=== PATIENT | female | born 2000 | race Caucasian/White ===

== ENCOUNTER 2023-06-02 01:11 | Emergency (ER) | payer MEDICAID ==
[~2023-06-02] VITALS: Ht 157.5 cm; Wt 95.3 kg
[2023-06-02 01:14] VITALS: BP 137/86; PULSE 120; RESP 16; TEMP 97.4; O2SAT 97
[2023-06-02] MEDS ORDERED: levETIRAcetam 500 MG TAB PO ONE (02:25)
[2023-06-02 03:30] LABS: BASOPHILS % (AUTO) 0.3 % (0.0-2.0); EOSINOPHILS # (AUTO) 0.2 K/uL (0-0.4); EOSINOPHILS % (AUTO) 1.3 % (0.0-4.0); HEMATOCRIT 37.8 % (36-48); HEMOGLOBIN 12.2 g/dL (12.0-16.0); LYMPHOCYTES % (AUTO) 15.8 % (20.5-51.1); MEAN CORPUSCULAR HEMOGLOBIN 27 pg (27-31); MEAN CORPUSCULAR HGB CONC 32 g/dL (33-37); MEAN CORPUSCULAR VOLUME 83.4 fL (80-94); MONOCYTES # (AUTO) 0.6 K/uL (0.8-1.0); MONOCYTES % (AUTO) 4.7 % (1.7-9.3); NEUTROPHILS # (AUTO) 9.8 K/uL (1.8-7.7); NEUTROPHILS % (AUTO) 77.9 % (42.2-75.2); PLATELET COUNT (AUTO) 290 K/uL (140-450); RED BLOOD CELL COUNT(AUTO) 4.53 MIL/uL (4.20-5.40); RED CELL DISTRIBUTION WIDTH 15.3 % (11.6-13.7); WHITE BLOOD COUNT (AUTO) 12.6 K/uL (4.8-10.8)
[2023-06-02] MEDS ORDERED: KETOROLAC 15 MG/ML VIAL IVP ONE (03:35)
[2023-06-02 03:45] LABS: ANION GAP 10.6 (8-16); CALCIUM 8.3 mg/dL (8.5-10.1); CARBON DIOXIDE 28.3 mmol/L (21-32); CREATININE 0.7 mg/dL (0.6-1.3); POTASSIUM 3.9 mmol/L (3.5-5.1)
[2023-06-02] MEDS ORDERED: KETOROLAC 30 MG/ML VIAL ONE (03:53)
[2023-06-02 05:35] VITALS: BP 118/58; PULSE 102; RESP 19; TEMP 97.4; O2SAT 99
== END 2023-06-02 05:35 | disposition home or self-care (01) ==
LOC: MED 01:11
DX: R56.9 Unspecified convulsions (principal); M79.672 Pain in left foot; Z91.148 Patient's other noncompliance with medication regimen for other reason; Z88.8 Allergy status to other drugs, medicaments and biological substances
CPT/HCPCS: 36415; 73630; 80048; 81025; 85025; 93005; 96374; 99285; J1885; Q0092